=== PATIENT | female | born 1945 | race Caucasian/White ===

== ENCOUNTER → 2019-08-02 | Outpatient (CLI) | payer MEDICARE ==
[~2019-08-02] MED LIST: CLONIDINE HCL0.1 MG PO; RESTASIS1 EACH OU; ULTRAM50 MG PO
== END ==
LOC: RAD 13:48
PROVIDERS: ATTEND Family Medicine
DX: R60.0 Localized edema (principal)
CPT/HCPCS: 93971

== ENCOUNTER 2024-10-31 14:06 | Emergency (ER) | payer MEDICARE ==
[~2024-10-31] VITALS: Ht 170.2 cm; Wt 58.5 kg
[2024-10-31 14:19] VITALS: TEMP 98.1
[2024-10-31] MEDS ORDERED: ACETAMINOPHEN 325 MG TAB PO ONE (14:45)
[2024-10-31 16:15] VITALS: PULSE 90; RESP 16
[2024-10-31 16:58] VITALS: BP 155/90; PULSE 90; RESP 18; O2SAT 100
== END 2024-10-31 16:58 | disposition home or self-care (01) ==
LOC: ER 14:30
DX: S72.8X2D Other fracture of left femur, subsequent encounter for closed fracture with routine healing (principal); W18.39XD Other fall on same level, subsequent encounter; G30.9 Alzheimer's disease, unspecified; F02.80 Dementia in other diseases classified elsewhere, unspecified severity, without behavioral disturbance, psychotic disturbance, mood disturbance, and anxiety
CPT/HCPCS: 99283